=== PATIENT | female | born 1960 | race Caucasian/White ===

== ENCOUNTER 2022-10-05 08:46 | Emergency (ER) | payer OTHER, SELFPAY ==
[2022-10-05 09:26] VITALS: BP 124/58; PULSE 75; RESP 16; TEMP 37; O2SAT 100
--- NOTE | 2022-10-05 10:07 | ED.URI ---
HPI - URI/Sore Throat General Chief Complaint: Upper Respiratory Infection Stated Complaint: cough, sore throat, congestion, chills Time Seen by Provider: 10/05/22 10:08 Source: patient and RN notes reviewed Mode of arrival: ambulatory Limitations: no limitations History of Present Illness HPI Narrative: 62-year-old female presents concern for cough, sore throat, nasal congestion, hoarse voice, chills. Reports symptoms started on Saturday. She reports she is up all night coughing. She reports her grandkids had similar illness last week MD elicited complaint: cough and other (Hoarse voice) Related Data Home Medications Medication Instructions Recorded Confirmed levothyroxine 88 mcg tablet 88 mcg PO DAILY 10/05/22 10/05/22 losartan 25 mg tablet 25 mg PO DAILY 10/05/22 10/05/22 medroxyprogesterone 2.5 mg tablet 2.5 mg PO DAILY 10/05/22 10/05/22 Allergies Allergy/AdvReac Type Severity Reaction Status Date / Time Penicillins Allergy Unknown Verified 10/05/22 09:29 Review of Systems Review of Systems: CONSTITUTIONAL: Denies malaise, sweats, or fever. Reports chills EYES: Denies visual changes, redness, or discharge. ENT: Reports rhinorrhea, congestion, and sore throat. Denies sinus pain, otalgia CARDIOVASCULAR: Denies chest pain, palpitations, or edema. RESPIRATORY: Reports cough, hoarse voice. Denies dyspnea. GASTROINTESTINAL: Denies abdominal pain, nausea, vomiting, diarrhea SKIN: Denies rash or itching. MUSCULOSKELETAL: Denies myalgia. NEUROLOGIC: Denies headache. All systems reviewed & are unremarkable except as noted in HPI and below PMFSH Comments At time of signature, agree with nursing past medical, surgical, social and family history. There is no relevant family history pertinent to the presenting complaint Exam Narrative: GENERAL: Well-appearing, well-nourished, and in no acute distress. HEAD: Normocephalic EYES: PERRLA, conjunctivae clear ENT: Nares clear, turbinates edematous and erythematous, clear discharge. Mucous membranes moist. TM pearly falcon with dull light reflex bilaterally; no tragal tenderness. Oropharynx not erythematous without lesions. Tonsils not enlarged and without exudate, no drooling, no trismus, uvula midline. Hoarse voice NECK: Supple. No lymphadenopathy CHEST: Clear to auscultation, breath sounds equal. No wheezing, rhonchi, rales, or stridor. No respiratory distress, speaks in full sentences. HEART: Regular rate and rhythm. No murmur heard. SKIN: Warm, dry, no rash. NEURO: Alert and oriented x3. PSYCH: Normal mood and affect Course Course Emergency Course: Patient is aware of diagnosis, understands and agrees to treatment plan. Anticipatory guidance given. Patient agrees to follow-up as directed and is aware of reasons to seek care at the emergency department. Portions of this record may have been created with voice recognition software Level of Care: Express Care Visit Vital Signs Vital signs: Vital Signs Temperature 98.6 F 10/05/22 09:26 Pulse Rate 75 10/05/22 09:26 Respiratory Rate 16 10/05/22 09:26 Blood Pressure 124/58 L 10/05/22 09:26 Pulse Oximetry 100 10/05/22 09:26 Temperature 98.6 F 10/05/22 09:26 Pulse Rate 75 10/05/22 09:26 Respiratory Rate 16 10/05/22 09:26 Blood Pressure 124/58 L 10/05/22 09:26 Pulse Oximetry 100 10/05/22 09:26 Reviewed. MDM - URI/Sore Throat MDM Narrative Medical decision making narrative: Differential diagnosis considered: Littlejohn virus, strep pharyngitis, allergic rhinitis, upper respiratory tract infection, sinusitis, rhinosinusitis, nasopharyngitis. viral pharyngitis, otitis media, otitis externa, pneumonia, bronchitis, viral cough syndrome, viral syndrome, and influenza. Exam findings show no acute concerns or changes; patient is non-toxic appearing and is in no distress. Patient is appropriate for outpatient treatment and follow-up. Lab Data Attestation: I reviewed the patient's lab results. C
== END 2022-10-05 10:25 | disposition home or self-care (01) ==
PROVIDERS: Emergency Provider Nurse Practitioner
DX: J06.9 Acute upper respiratory infection, unspecified (principal); R05.9 Cough, unspecified
CPT/HCPCS: 99213; G0463

== ENCOUNTER 2024-10-17 08:04 | Emergency (ER) | payer OTHER, SELFPAY ==
--- NOTE | 2024-10-17 08:08 | ED.URI ---
HPI - URI/Sore Throat General Chief Complaint: Upper Respiratory Infection Stated Complaint: Cough/Congestion Time Seen by Provider: 10/17/24 08:09 Source: patient Mode of arrival: ambulatory Limitations: no limitations History of Present Illness HPI Narrative: Aleshia is a 64-year-old female patient presenting to the clinic today with complaints of cough and congestion x3 days. She reports that she has had direct exposure to her grandson who has walking pneumonia. Denies any fever or body aches at this time. Reports she does have some green nasal drainage in is coughing up some green phlegm. Denies any chest pain but does have some shortness of breath while coughing. No history of asthma or COPD. Patient is a nonsmoker. MD elicited complaint: cough and nasal congestion Related Data Home Medications Medication Instructions Recorded Confirmed levothyroxine 88 mcg tablet 88 mcg PO DAILY 10/05/22 10/17/24 losartan 25 mg tablet 25 mg PO DAILY 10/05/22 10/17/24 medroxyprogesterone 2.5 mg tablet 2.5 mg PO DAILY 10/05/22 10/17/24 estradiol 2 mg tablet 2 mg PO DAILY 10/17/24 10/17/24 Allergies Allergy/AdvReac Type Severity Reaction Status Date / Time Penicillins AdvReac Mild Hives Verified 10/17/24 08:07 Sulfa (Sulfonamide AdvReac Mild Hives Verified 10/17/24 08:19 Antibiotics) Review of Systems Review of Systems: Pertinent positives per HPI. Patient denies any fever, chills, rash, headache, visual changes, dizziness, shortness of breath, chest pain, palpitations, nausea, vomiting, diarrhea, constipation, abdominal pain, or any urinary issues. PMFSH Comments At the time of my signature, I reviewed and agree with the nursing past medical, surgical, social, and family history. There is no relevant family history pertinent to the patient complaint. Exam Narrative: General: Well-developed, well nourished, in no apparent distress Head: Normocephalic, atraumatic Eyes: Pupils equally round and reactive to light bilaterally, EOM intact, sclera and conjunctive clear, no discharge, lids normal Ears: TMs intact and clear, ear canals clear, no drainage, grossly hearing normal. Nose: Nares patent, clear nasal discharge, no inflammation, no sinus tenderness. Mouth: Oral pharynx without lesions or masses, good dentition, MMM. Postnasal drip Neck: Supple, trachea midline, no enlargement of anterior or posterior cervical nodes, no thyroid masses or goiter palpable. Cardio: Regular rate and rhythm, s1 and s2 normal, no murmur appreciated. Resp: Slightly diminished in the bases otherwise clear, no rhonchi, rales, wheezing or rubs Course Course Emergency Course: Portions of this record may have been created with voice recognition software. Level of Care: Express Care Visit Vital Signs Vital signs: Vital Signs Temperature 36.4 C 10/17/24 08:14 Pulse Rate 70 10/17/24 08:14 Respiratory Rate 16 10/17/24 08:14 Blood Pressure 146/74 H 10/17/24 08:14 Pulse Oximetry 100 10/17/24 08:14 Temperature 36.4 C 10/17/24 08:14 Pulse Rate 70 10/17/24 08:14 Respiratory Rate 16 10/17/24 08:14 Blood Pressure 146/74 H 10/17/24 08:14 Pulse Oximetry 100 10/17/24 08:14 Vital signs reviewed MDM - URI/Sore Throat MDM Narrative Medical decision making narrative: At the time of visit patient is resting comfortably on the exam table. Patient appears to be nontoxic. Plan: Offer to do a chest x-ray and patient she declined at this time. Will cover patient for a walking pneumonia as she has had direct exposure to her grandson. Will place the patient on azithromycin and give her Tessalon Perles at take at nighttime and encouraged her to use Mucinex during the day. Supportive measures were discussed with the patient and they voiced understanding discharge instructions and agrees to treatment plan. Return precautions reviewed Differential Diagnosis Differential diagnosis: Likely upper respiratory infection, otitis media, sinusitis, viral infection, bronchitis, influenza, pharyngitis and other Discharge Plan Discharge Clinical Impression: Exposure to pneumonia Upper respiratory infection Qualifiers: URI type: unspecified URI Qualified Code(s): J06.9 - Acute upper respiratory infection, unspecified Patient Disposition: Home, Self-Care Condition: Stable Instructions: Antibiotic Form, Cold Symptoms (ED) Additional Instructions: You declined chest x-ray in the clinic today. Take prescription medications only as prescribed-azithromycin and Tessalon Perles During the daytime you may take Mucinex to help liquify secretions intake Tessalon Perles at nighttime to help you sleep. Increase fluids and stay well hydrated Tylenol/motrin for pain/fever Flonase and OTC antihistamines as directed Vicks vapor rub to open sinuses Sinus rinses for congestion Cepacol spray, cough drops, throat lozenges, warm tea with honey/lemon, gargle salt water to soothe throat BRAT diet for diarrhea Clear liquids x 24 hours then advance as tolerated for nausea/vomiting Go to the ED if you develop a worsening in your condition- high fever not controlled by Tylenol or Motrin, dehydration, weakness, lethargy, shortness of breath, or chest pain. Follow up with your PCP in 3-5 days if symptoms persist. Prescriptions: New azithromycin 250 mg tablet See Rx Instructions .ROUTE .COMPLEX Qty: 6 0RF Rx Instructions: For 250 mg dose pack: take 500 mg today (day 1), then 250 mg for 4 days (days 2-5) benzonatate 200 mg capsule 200 mg PO TID 7 Days Qty: 21 0RF No Action medroxyprogesterone 2.5 mg tablet 2.5 mg PO DAILY levothyroxine 88 mcg tablet 88 mcg PO DAILY losartan 25 mg tablet 25 mg PO DAILY estradiol 2 mg tablet 2 mg PO DAILY Follow-up/Referrals: PHYSICIAN,CONCRETE [employer]ING MACHINE OPERATOR [Primary Care Provider] - Time of Disposition: 08:24 Quality NIHSS Nursing Documentation ED NIHSS nursing documentation: reviewed/agree
[2024-10-17 08:14] VITALS: BP 146/74; PULSE 70; RESP 16; TEMP 36.4; O2SAT 100
== END 2024-10-17 08:26 | disposition home or self-care (01) ==
PROVIDERS: Emergency Provider Nurse Practitioner Family
DX: J06.9 Acute upper respiratory infection, unspecified (principal); Z20.89 Contact with and (suspected) exposure to other communicable diseases; I10 Essential (primary) hypertension; M19.90 Unspecified osteoarthritis, unspecified site; E03.9 Hypothyroidism, unspecified; Z86.16 Personal history of COVID-19
CPT/HCPCS: 99213; G0463

== ENCOUNTER 2025-07-05 15:42 | Emergency (ER) | payer MEDICARE, SELFPAY ==
[2025-07-05 15:53] VITALS: BP 166/68; PULSE 70; RESP 18; TEMP 36.3; O2SAT 99
--- NOTE | 2025-07-05 16:17 | ED.EAR ---
HPI - Ear Problem General Chief complaint: Ear Stated complaint: RT Ear Clogged Time Seen by Provider: 07/05/25 15:56 Source: patient and RN notes reviewed Mode of arrival: ambulatory Limitations: no limitations History of Present Illness HPI Narrative: Patient presents today with right ear clogging x2 days. Denies pain or drainage. She does have history of cerumen impaction. She has been trying Debrox at home without improvement. Related Data Home Medications ?Medication ?Instructions ?Recorded ?Confirmed ?Last Taken ?Type levothyroxine 88 mcg tablet 88 mcg PO DAILY 10/05/22 07/05/25 Unknown History losartan 25 mg tablet 25 mg PO DAILY 10/05/22 07/05/25 Unknown History medroxyprogesterone 2.5 mg tablet 2.5 mg PO DAILY 10/05/22 07/05/25 Unknown History estradiol 2 mg tablet 2 mg PO DAILY 10/17/24 07/05/25 Unknown History Allergies Allergy/AdvReac Type Severity Reaction Status Date / Time Penicillins AdvReac Mild Hives Verified 07/05/25 15:44 Sulfa (Sulfonamide AdvReac Mild Hives Verified 07/05/25 15:44 Antibiotics) PMFSH Comments At time of signature, I have reviewed and agree with nursing past medical, surgical, social and family history unless otherwise noted. Please see nursing chart for further information. There is no relevant family history pertinent to the presenting complaint Exam Narrative: GENERAL: Well-appearing, well-nourished, and in no acute distress. HEAD: Normocephalic, atraumatic. EYES: EOMI. No redness or drainage. Conjunctivae normal. ENT: Mucous membranes pink and moist. Left TM normal with moderate amount of wax in the canal. Right TM occluded with cerumen impaction. See procedure note NECK: Normal AROM. CHEST: No respiratory distress. EXTREMITIES: Normal range of motion. No edema. SKIN: Warm, dry, no rash. Capillary refill normal. Normal skin turgor. NEURO: No focal deficits. Alert and oriented x3. Gait steady. PSYCH: Normal affect. No signs of depression or anxiety. Course Course Level of Care: Express Care Visit Vital Signs Vital signs: Vital Signs Temperature 97.3 F L 07/05/25 15:53 Pulse Rate 70 07/05/25 15:53 Respiratory Rate 07/05/25 15:53 Blood Pressure 166/68 H 07/05/25 15:53 Pulse Oximetry 99 07/05/25 15:53 Oxygen Delivery Room Air 07/05/25 15:53 Temperature 97.3 F L 07/05/25 15:53 Pulse Rate 70 07/05/25 15:53 Respiratory Rate 18 07/05/25 15:53 Blood Pressure 166/68 H 07/05/25 15:53 Pulse Oximetry 99 07/05/25 15:53 Oxygen Delivery Room Air 07/05/25 15:53 Review Procedures Ear Wax Removal Both Ears: Ear Wax Removal Date: 07/05/25 Ear Wax Removal Time: 16:17 Cerumenolytic Used: other (water and small amount of peroxide) Results: Re-examined: cerumen removed completely TM Examination: TM(s) intact, normal appearance Ear Canal Exam: atraumatic Patient Tolerated Procedure: well Complications: no problems Technique: ear canal irrigated (Alligator forceps also used to remove wax adhered to ear canals.) and ear canal curetted Medical Decision Making MDM Narrative Medical decision making narrative: 65-year-old female patient presents today with clogging to the right ear x2 days without pain or drainage. History of cerumen impaction. She has been using Debrox without improvement. Exam shows moderate amount of cerumen in the left ear within normal TM. Right ear exam shows cerumen impaction. Irrigation and manual removal of cerumen from both ears completed. Right TM normal underarm the cerumen. Both ear canals normal. Vital signs stable. Anticipatory guidance given. Differential Diagnosis Differential Diagnosis: Otitis media, otitis externa, ruptured TM, serous otitis, cerumen impaction Vital Signs Vital Signs: Vital Signs Temperature 97.3 F L 07/05/25 15:53 Pulse Rate 70 07/05/25 15:53 Respiratory Rate 18 07/05/25 15:53 Blood Pressure 166/68 H 07/05/25 15:53 Pulse Oximetry 99 07/05/25 15:53 Oxygen Delivery Room Air 07/05/25 15:53 Temperature 97.3 F L 07/05/25 15:53 Pulse Rate 70 07/05/25 15:53 Respiratory Rate 18 07/05/25 15:53 Blood Pressure 166/68 H 07/05/25 15:53 Pulse Oximetry 99 07/05/25 15:53 Oxygen Delivery Room Air 07/05/25 15:53 Critical Care Time Critical Care Time Critical Care Time: No Discharge Plan Discharge Clinical Impression: Bilateral impacted cerumen Patient Disposition: Home Condition: Stable Additional Instructions: Ear wax was removed from both ears. Follow-up with your PCP with any additional concerns. Your blood pressure was elevated above 120/80 today at Urgent Care. This puts you above the threshold for follow up. Please schedule a followup visit with your personal physician as soon as possible, for further evaluation and treatment. Even blood pressure exceeding 120/80 may indicate pre-hypertension. Patient Language: Turkmen Prescriptions: No Action medroxyprogesterone 2.5 mg tablet 2.5 mg PO DAILY levothyroxine 88 mcg tablet 88 mcg PO DAILY losartan 25 mg tablet 25 mg PO DAILY estradiol 2 mg tablet 2 mg PO DAILY Follow-up/Referrals: Carl,Amanda Jensen APRN [Primary Care Provider] - Time of Disposition: 16:18
== END 2025-07-05 16:21 | disposition home or self-care (01) ==
PROVIDERS: Emergency Provider Nurse Practitioner; PCP Nurse Practitioner
DX: H61.23 Impacted cerumen, bilateral (principal); I10 Essential (primary) hypertension; K21.9 Gastro-esophageal reflux disease without esophagitis; M19.90 Unspecified osteoarthritis, unspecified site; E03.9 Hypothyroidism, unspecified; Z86.16 Personal history of COVID-19
CPT/HCPCS: 69210; 99212; A9270; G0463

== ENCOUNTER 2025-07-14 09:00 | Emergency (ER) | payer MEDICARE, SELFPAY ==
--- OUTSIDE RECORDS SUMMARY | 2025-03-10 11:48 | XMS_ITS | Continuity of Care Document ---
Author Organization [employer] Address [address] [place] [id number] Phone Care Team Providers Care Vb Net Developer Name Role Phone Unavailable Unavailable Unavailable Unavailable Unavailable Unavailable Unavailable Unavailable Unavailable Unavailable Unavailable Unavailable Unavailable Unavailable Unavailable Unavailable Unavailable Unavailable Unavailable Unavailable Unavailable Unavailable Unavailable Unavailable Unavailable Unavailable Unavailable Unavailable Unavailable Unavailable Unavailable Unavailable Unavailable Unavailable Unavailable Unavailable Unavailable Unavailable Unavailable Unavailable Problems Hypothyroidism Onset:18-Sep-2016 Comments:Note: Unchanged Essential hypertension Onset:18-Sep-2016 Comments:Note: Unchanged Primary insomnia Onset:18-Sep-2016 Comments:Note: Unchanged Hypoglycemia Status:Resolvedas [id number] Comments:Note: Resolved Allergies and Adverse Reactions Product containing sulfonami de (product)(Allergy) Onset: 15-Sep-2016 Reaction:Eruption,Urticaria Product containing penicilli n and antibiotic (product)(Allergy) Onset: 15-Sep-2016 Reaction:Eruption,Urticaria Penicillin(Allergy) Reaction:Other reaction Sulfa(Allergy) Reaction:Itching/rash Medications tiZANidine 2 MG Oral Tablet; One (1) pill po up to two times a day Quantity:30 Refills:0 One (1) pill po up to two times a day David Garcia DO Start:10-Mar-2025 losartan potassium 25 MG Ora l Tablet;TAKE 1 TABLET BY MOUTH EVERY DAY Quantity:90 Refills:3 TAKE 1 TABLET BY MOUTH EVERY DAY Bridget Juan Natasha Start:76-Bzq-2009Ccc: levothyroxine sodium 0.088 M G Oral Tablet;TAKE 1 TABLET BY MOUTH EVERY DAY IN THE MORNING ON AN EMPTY STOMACH Quantity:90 Refills:3 TAKE 1 TABLET BY MOUTH EVERY DAY IN THE MORNING ON AN EMPTY STOMACH Bridget Juan Natasha Start:6-Jhr-4769Vbk:20-Dec-19 26 levothyroxine sodium 0.088 M G Oral Tablet;TAKE 1 TABLET BY MOUTH EVERY DAY IN THE MORNING ON AN EMPTY STOMACH Quantity:90 Refills:3 TAKE 1 TABLET BY MOUTH EVERY DAY IN THE MORNING ON AN EMPTY STOMACH Bridget Kaur Start:86-Yiy-2816Pog: 025 Status:Aborted losartan potassium 25 MG Ora l Tablet;TAKE 1 TABLET BY MOUTH EVERY DAY Quantity:90 Refills:1 TAKE 1 TABLET BY MOUTH EVERY DAY Bridget Kaur Start:24-Ptc-2456Omt: 5 Status:Aborted ondansetron 4 MG Oral Tablet;Ondansetron HCl 4 MG Oral Tablet QTY: 0 tablet Days: 0 Refills: 0 Written: 09/23/24 Patient Instructions: Quantity:0 Refills:0 Bridget Kaur Start:23-Sep-2024 Comments:Ondansetron HCl 4 MG Oral Tablet QTY: 0 tablet Days: 0 Refills: 0 Written: 09/23/24 Patient Instructions: levothyroxine sodium 0.088 M G Oral Tablet;TAKE 1 TABLET BY MOUTH EVERY DAY IN THE MORNING ON AN EMPTY STOMACH Quantity:90 Refills:1 TAKE 1 TABLET BY MOUTH EVERY DAY IN THE MORNING ON AN EMPTY STOMACH Bridget Kaur Start:62-Suq-4643Pvv: 4 Status:Complete losartan potassium 25 MG Ora l Tablet;TAKE 1 TABLET BY MOUTH EVERY DAY Quantity:90 Refills:1 TAKE 1 TABLET BY MOUTH EVERY DAY Bridget Kaur Start:10-Njd-7711Ask: 4 Status:Complete predniSONE 20 MG Oral Tablet ;Take 2 tabs by mouth day one, then 1 tab by mouth each day until finished Quantity:6 Refills:0 Take 2 tabs by mouth day one, then 1 tab by mouth each day until finished Bridget Kaur Start:37-Vjy-8092Ewi: 024 Status:Aborted ondansetron 4 MG Oral Tablet ;One (1) pill po up to three times a day as needed for severe nausea Quantity:18 Refills:0 One (1) pill po up to three times a day as needed for severe nausea Bridget Kaur Start:51-Nxn-6853Jlf:23-Sep-2024 Status:Aborted losartan potassium 25 MG Ora l Tablet;TAKE 1 TABLET BY MOUTH EVERY DAY Quantity:90 Refills:1 TAKE 1 TABLET BY MOUTH EVERY DAY Jeny Meza Start:0-Myg-0762Miv:2 26-Jun-2024 Status:Complete levothyroxine sodium 0.088 M G Oral Tablet;TAKE 1 TABLET BY MOUTH EVERY DAY IN THE MORNING ON AN EMPTY STOMACH Quantity:90 Refills:1 TAKE 1 TABLET BY MOUTH EVERY DAY IN THE MORNING ON AN EMPTY STOMACH Jeny Meza Start:4-Rxm-7241Key: Status:Complete levothyroxine sodium 0.088 M G Oral Tablet;TAKE 1 TABLET BY MOUTH EVERY DAY IN THE MORNING ON AN EMPTY STOMACH Quantity:90 Refills:1 TAKE 1 TABLET BY MOUTH EVERY DAY IN THE MORNING ON AN EMPTY STOMACH Marilu Harmon Start:12-Rco-2734Iyh: Status:Aborted losartan potassium 25 MG Ora l Tablet;TAKE ONE TABLET BY MOUTH ONE TIME DAILY Quantity:90 Refills:1 TAKE ONE TABLET BY MOUTH ONE TIME DAILY Marilu Harmon Start:85-Yds-3199Uze: Status:Complete losartan potassium 25 MG Ora l Tablet;TAKE ONE TABLET BY MOUTH ONE TIME DAILY Quantity:90 Refills:1 TAKE ONE TABLET BY MOUTH ONE TIME DAILY Spencer Pedro Start:6-Vcr-7967Cll: Status:Complete levothyroxine sodium 0.088 M G Oral Tablet;TAKE 1 TABLET BY MOUTH EVERY DAY IN THE MORNING ON AN EMPTY STOMACH Quantity:90 Refills:1 TAKE 1 TABLET BY MOUTH EVERY DAY IN THE MORNING ON AN EMPTY STOMACH Bridgeterica Kaur Start:5-Wpr-9402Bes: Status:Complete levothyroxine sodium 0.088 M G Oral Tablet;TAKE 1 TABLET BY MOUTH EVERY DAY IN THE MORNING ON AN EMPTY STOMACH Quantity:90 Refills:1 TAKE 1 TABLET BY MOUTH EVERY DAY IN THE MORNING ON AN EMPTY STOMACH Bridgeterica Kaur Start:5-Mwd-8394Tlr:20-Nov-19 Status:Complete losartan potassium 25 MG Ora l Tablet;TAKE ONE TABLET BY MOUTH ONE TIME DAILY Quantity:90 Refills:3 TAKE ONE TABLET BY MOUTH ONE TIME DAILY Spencer Pedro Start:9-Wbc-8275Swg:22-Jan-20 Status:Complete losartan potassium 25 MG Ora l Tablet;TAKE ONE TABLET BY MOUTH ONE TIME DAILY Quantity:90 Refills:3 TAKE ONE TABLET BY MOUTH ONE TIME DAILY Bridget Kaur Start:19-Adp-2718Ejj: Status:Complete levothyroxine sodium 0.088 M G Oral Tablet;TAKE 1 TABLET BY MOUTH EVERY DAY IN THE MORNING ON AN EMPTY STOMACH Quantity:90 Refills:1 TAKE 1 TABLET BY MOUTH EVERY DAY IN THE MORNING ON AN EMPTY STOMACH Amanda Foster Start:50-Mou-3847Upi: Status:Aborted ondansetron 4 MG Disintegrat ing Oral Tablet;One (1) pill po up to four times a day if needed for severe nausea Quantity:20 Refills:2 One (1) pill po up to four times a day if needed for severe nausea Marilu Harmon Start:83-Szt-9382Fno: 3 Status:Aborted losartan potassium 25 MG Ora l Tablet;TAKE ONE TABLET BY MOUTH ONE TIME DAILY Quantity:90 Refills:3 TAKE ONE TABLET BY MOUTH ONE TIME DAILY Bridget Kaur Start:20-Zbc-0326Boa: Status:Aborted levothyroxine sodium 0.088 M G Oral Tablet;TAKE ONE TABLET BY MOUTH ONE TIME DAILY IN THE MORNING ONE HOUR PRIOR TO BREAKFAST ON AN EMPTY STOMACH Quantity:90 Refills:3 TAKE ONE TABLET BY MOUTH ONE TIME DAILY IN THE MORNING ONE HOUR PRIOR TO BREAKFAST ON AN EMPTY STOMACH Bridget Kaur Start:2-Zvv-6393Ayp: Status:Aborted potassium bicarbonate 99 MG Oral Capsule;1 Daily Quantity:0 Refills:0 Marilu Harmon Start:88-Qes-6469Vpn: 3 Status:Aborted Comments:Potassium Bicarbonate 99 MG Oral Capsule QTY: 0 capsule Days: 0 Refills: 0 Written: 11/29/20 Patient Instructions: losartan potassium 25 MG Ora l Tablet;TAKE ONE TABLET BY MOUTH ONE TIME DAILY Quantity:90 Refills:0 TAKE ONE TABLET BY MOUTH ONE TIME DAILY Yuly Adair Start:9-Ntj-8680Uej: Status:Aborted levothyroxine sodium 0.088 M G Oral Tablet;TAKE ONE TABLET BY MOUTH ONE TIME DAILY IN THE MORNING ONE HOUR PRIOR TO BREAKFAST ON AN EMPTY STOMACH Quantity:90 Refills:0 TAKE ONE TABLET BY MOUTH ONE TIME DAILY IN THE MORNING ONE HOUR PRIOR TO BREAKFAST ON AN EMPTY STOMACH Yuly Adair Start:97-Jer-2931Ncg: Status:Aborted levothyroxine sodium 0.088 M G Oral Tablet;TAKE ONE TABLET BY MOUTH ONE TIME DAILY IN THE MORNING ONE HOUR PRIOR TO BREAKFAST ON AN EMPTY STOMACH Quantity:90 Refills:0 TAKE ONE TABLET BY MOUTH ONE TIME DAILY IN THE MORNING ONE HOUR PRIOR TO BREAKFAST ON AN EMPTY STOMACH Yuly Adair Start:19-Tte-3001Npl: Status:Complete losartan potassium 25 MG Ora l Tablet;TAKE ONE TABLET BY MOUTH ONE TIME DAILY Quantity:90 Refills:1 TAKE ONE TABLET BY MOUTH ONE TIME DAILY Yuly Adair Start:7-Cca-5238Msb:19-Oct-20 Status:Aborted cyclobenzaprine hydrochlorid e 10 MG Oral Tablet;Take one every bedtime Quantity:15 Refills:0 Take one every bedtime Yuly Adair Start:9-Nsf-4471Btn: Status:Aborted losartan;As needed (PRN): NoDispense as written: No Quantity:0 Refills:0 Marisa Nixon Start:26-Sep-2019 medroxyPROGESTERone acetate 2.5 MG Oral Tablet;1 tab(s) orally once a day Quantity:0 Refills:0 Marisa Nixon Start:26-Sep-2019 losartan potassium 25 MG Ora l Tablet;1 tab(s) orally once a day Quantity:0 Refills:0 Marisa Nixon Start:26-Sep-2019 high blood pressure pill;As needed (PRN): NoDispense as written: No Quantity:0 Refills:0 Day Singh Start:04-Jan-2017 Synthroid;orally Quantity:0 Refills:0 Day Singh Start:04-Jan-2017 estradiol;orally Quantity:0 Refills:0 Day Singh Start:04-Jan-2017 estradiol 1 MG Oral Tablet;1 Daily Quantity:0 Refills:0 David Garcia DO Start:15-Sep-2016 Comments:Estradiol 1 MG Oral Tablet QTY: 0 tablet Days: 0 Refills: 0 Written: 09/15/16 Patient Instructions: medroxyPROGESTERone acetate 2.5 MG Oral Tablet;1 Daily Quantity:0 Refills:0 David Garcia DO Start:15-Sep-2016 Comments:medroxyPROGESTERone Acetate 2.5 MG Oral Tablet QTY: 0 tablet Days: 0 Refills: 0 Written: 09/15/16 Patient Instructions: calcium acetate 600 MG Oral Tablet;1 Daily Quantity:0 Refills:0 David Garcia DO Start:15-Sep-2016 Comments:Calcium 600 MG Oral Tablet QTY: 0 tablet Days: 0 Refills: 0 Written: 09/15/16 Patient Instructions: Procedures Immunization administration (includes percutaneous, intradermal, subcutaneous, or intramuscular injections); 1 vaccine (single or combination vaccine/toxoid) Date:27-Aug-2023 Status:Completed Influenza virus vaccine, shanna drivalent (ccIIV4), derived from cell cultures, subunit, preservative and antibiotic free, 0.5 mL dosage, for intramuscular use Date:27-Aug-2023 Status:Completed Mammo Screen Bilateral/CADResult:Procedure: NMA - Mammo Screen Bilateral/CADReason: Z12.31 Encounter for screening mammogram for malignant neoplasm of breast Z12.3 Procedure Date: 11/04/2024 ACC#: [id number] Location: [facility] ER at [address], [place], [place] [phone] MAMMOGRAM WITH 3-D TomosynthesisCLINICAL INDICATION: Breast cancer screening.No symptoms or history of breast cancer.COMPARISON: Prior from 2021 and 2022TECHNIQUE: MLO and CC routine views of each breast were obtained in 2-D and 3-D tomosynthesis. CAD was used to assist with interpretation.BREAST DENSITY COMPOSITION: B-There are scattered areas of fibroglandular densityFINDINGS: There are no suspicious masses, suspicious microcalcifications or suspicious areas of architectural distortion. Stable glandular parenchymal pattern. Stable focal asymmetry in the right and left breast with no developing density. No adenopathy.IMPRESSION:No mammographic evidence of malignancy. If there is no change in the clinical breast exam, screening mammography in one year is recommended.Assessment: ACR Category: BI-RADS 2, Benign finding(s). Recommendation: Screening mammography.A. 4-8% of cancers are not identified by Mammography.B. A negative mammogram report should not delay biopsy if a dominant mass or clinically suspicious mass is present.C. Adenosis and dense breasts may obscure an underlying neoplasm.D. False positive reports average 6-10%.This office is an ACR accredited mammography facility.Electronically signed by: Teresita Roland MD 11/04/2024 04:44 PM EST RP Workstation: [id number] by: on Nov 04 2024 4:44PTranscribed by: on Nov 04 2024 4:44PReviewed by: Date:04-Nov-2024 Mammo Screen Bilateral/CADResult:Procedure: NMA - Mammo Screen Bilateral/CADReason: Z12.31 ENCOUNTER FOR SCREENING MAMMOGRAM FOR MALIGNANT NEOPLASM OF BREAST Z12.3 Procedure Date: 09/02/2023 ACC#: [id number] MAMMOGRAMCLINICAL INDICATION: Breast cancer screening.No symptoms or history of breast cancer. Patient declined 3-D imagingCOMPARISON: Priors available through 2018TECHNIQUE: MLO and CC routine views of each breast were obtained in 2-D . CAD was used to assist with interpretation.BREAST DENSITY COMPOSITION: B-There are scattered areas of fibroglandular densityFINDINGS: There are no suspicious masses, suspicious microcalcifications or suspicious areas of architectural distortion. Stable focal asymmetry of the right superior breast with no developing density.IMPRESSION:No mammographic evidence of malignancy. If there is no change in the clinical breast exam, screening mammography in one year is recommended.BI-RADS CODE: 2 - BENIGN FINDINGS.A. 4-8% of cancers are not identified by Mammography.B. A negative mammogram report should not delay biopsy if a dominant mass or clinically suspicious mass is present.C. Adenosis and dense breasts may obscure an underlying neoplasm.D. False positive reports average 6-10%.This office is an ACR accredited mammography facility.Electronically signed by: Teresita Roland MD 09/02/2023 04:15 PM EDT Workstation: [id number] by: on Sep 02 2023 4:15PTranscribed by: on Sep 02 2023 4:15PReviewed by: Date:02-Sep-2023 Immunizations Influenza 6 mos + Trivalent PF 0.5ml FLUZONE On:18-Aug-2024 Influenza Cell Based 6 month s+ Quad, IM 0.5 ml Lot #:[id number], Seqirus On:27-Aug-2023 Site:Structure of deltoid muscle Influenza (quad, PF Peds 6-3 5m) Lot #:[id number], [employer]Craft On:31-Aug-2022 Site:Structure of deltoid muscle Zoster/Shingles, Recombinant (Shingrix) Lot #:[id number], DigeratiithKline On:28-Feb-2022 Zoster/Shingles, Recombinant (Shingrix) On:16-Jan-2022 SARS-CoV-2 (COVID-19) (Moder na) age 18 and older [employer]. On:18-Dec-2021 Site:Entire left upper arm Zoster/Shingles, Recombinant (Shingrix) GlaxoSmithKline On:18-Dec-2021 Influenza, High Dose, IM, PF On:18-Aug-2021 Influenza (quad, PF Peds 6-3 5m) sanofi pasteur On:11-Aug-2021 Site:Entire left upper arm SARS-CoV-2 (COVID-19) (Moder na) age 18 and older [employer]. On:22-Feb-2021 Site:Structure of deltoid muscle Influenza Egg Based 6 months +, Quad, IM, PF 0.5ml Lot #:[id number], sanofi pasteur On:26-Sep-2020 Site:Entire left upper arm Influenza Egg Based 6 months +, Quad, IM, PF 0.5ml Lot #:[id number], sanofi pasteur On:05-Oct-2019 Site:Entire left upper arm Tdap (Adacel) Lot #:[id number], sanofi pasteur On:21-Aug-2018 Site:Entire left upper arm Influenza Egg Based 6 months +, Quad, IM, PF 0.5ml Lot #:[id number], sanofi pasteur On:21-Aug-2018 Site:Entire left upper arm Influenza Egg Based 6 months +, Quad, IM, PF 0.5ml Lot #:[id number], sanofi pasteur On:18-Sep-2017 Site:Entire left upper arm Pneumococcal (PPSV23) (Pneum ovax) Not Administered On:18-Sep-2016 Social History Smoking Status Ex-smoker Comments:Smoking status : Former smoker Results CBC With Differential/Platelet Ordered On: Comments:PATIENT WAS FASTING 15-Sep-2024 02:36 WBC Auto (Bld) [#/Vol]6.710*3/uL Range:3.410*3/uL-10.810*3/uL RBC Auto (Bld) [#/Vol]3.9010*6/uL Range:3.7710*6/uL-5.2810*6/u L Hemoglobin (Bld) [Mass/Vol]12.3g/dL Range:11.1g/dL-15.9g/dL Hematocrit Auto (Bld ) [Volume fraction]37.1% Range:34%-46.6% MCV Auto (RBC) [Enti tic vol]95fL Range:79fL-97fL MCH Auto (RBC) [Enti tic mass]31.5pg Range:26.6pg-33pg MCHC Auto (RBC) [Mass/Vol]33.2g/dL Range:31.5g/dL-35.7g/dL Erythrocyte distribu tion width Auto (RBC) [Ratio]12.5% Range:11.7%-15.4% Platelets Auto (Bld) [#/Vol]48161*3/uL Range:92471*3/uL-85502*3/uL Neutrophils/100 WBC Auto (Bld)54% Range:Not Estab. Lymphocytes/100 WBC Auto (Bld)37% Range:Not Estab. Monocytes/100 WBC Au to (Bld)8% Range:Not Estab. Eosinophils/100 WBC Auto (Bld)1% Range:Not Estab. Basophils/100 WBC Au to (Bld)0% Range:Not Estab. Immature Cells Neutrophils Auto (Bl d) [#/Vol]3.610*3/uL Range:1.410*3/uL-710*3/uL Lymphocytes Auto (Bl d) [#/Vol]2.510*3/uL Range:0.710*3/uL-3.110*3/uL Monocytes Auto (Bld) [#/Vol]0.510*3/uL Range:0.110*3/uL-0.910*3/uL Eosinophils Auto (Bl d) [#/Vol]0.110*3/uL Range:010*3/uL-0.410*3/uL Basophils Auto (Bld) [#/Vol]0.010*3/uL Range:010*3/uL-0.210*3/uL Immature granulocyte s/100 WBC Auto (Bld)0% Range:Not Estab. Immature granulocyte s Auto (Bld) [#/Vol]0.010*3/uL Range:010*3/uL-0.110*3/uL Nucleated RBC/100 WB C Auto (Bld) [Ratio] Morphology Edwin (Bld) [Interp] Comp. Metabolic Panel (14) Ordered On: Comments:PATIENT WAS FASTING 15-Sep-2024 04:20 Glucose [Mass/Vol]78mg/dL Rang e:70mg/dL-99mg/dL Urea nitrogen [Mass/Vol]19mg/dL Range:8mg/dL-27mg/dL CO2 [Moles/Vol]23mmol/L Range:20 mmol/L-29mmol/L Calcium [Mass/Vol]8.8mg/dL Range :8.7mg/dL-10.3mg/dL Bilirubin [Mass/Vol]0.4mg/dL Range:0mg/dL-1.2mg/dL 15-Sep-2024 04:24 Creatinine [Mass/Vol]1.06mg/dL(High) Range:0.57mg/dL-1mg/dL GFR/1.73 sq M.predic lilibeth Creatinine-based formula (CKD-EPI 2020) (S/P/Bld) [Vol rate/Area]59mL/min/{1.73_m 2}(Low) Range:59mL/min/{1.73_m2}-0 Urea nitrogen/Creati nine [Mass ratio]18 Range:12-28 Protein [Mass/Vol]6.8g/dL Range: 6g/dL-8.5g/dL Globulin Calc (S) [Mass/Vol]2.8g/dL Range:1.5g/dL-4.5g/dL 15-Sep-2024 04:42 Sodium [Moles/Vol]139mmol/L Range:134mmol/L-144mmol/L Chloride [Moles/Vol]105mmol/L Range:96mmol/L-106mmol/L 15-Sep-2024 04:48 Potassium [Moles/Vol]4.8mmol/L Range:3.5mmol/L-5.2mmol/L 15-Sep-2024 04:18 Albumin [Mass/Vol]4.0g/dL Rang e:3.9g/dL-4.9g/dL ALP [Catalytic activity/Vol]58[IU]/L Range:44[IU]/L-121[IU]/L AST [Catalytic activity/Vol]23[IU]/L Range:0[IU]/L-40[IU]/L ALT [Catalytic activity/Vol]11[IU]/L Range:0[IU]/L-32[IU]/L Lipid Panel Ordered On:14-Sep-2024 Comments: PATIENT WAS FASTING 15-Sep-2024 04:26 Cholesterol [Mass/Vol]184mg/dL Range:100mg/dL-199mg/dL Triglyceride [Mass/Vol]95mg/dL Range:0mg/dL-149mg/dL 15-Sep-2024 04:30 Cholesterol in HDL [Mass/Vol]69mg/dL Range:39mg/dL-0 Cholesterol in VLDL Calc [Mass/Vol]17mg/dL Range:5mg/dL-40mg/dL Cholesterol in LDL C alc [Mass/Vol]98mg/dL Range:0mg/dL-99mg/dL LDL Calc Comment: Thyroxine (T4) Free, Direct Ordered On:14-Sep-20 Comments:PATIENT WAS FASTING 15-Sep-2024 04:29 Free T4 [Mass/Vol]1.34ng/dL Range:0.82ng/dL-1.77ng/dL TSH Ordered On:14-Sep-2024 Comments: PATIENT WAS FASTING 15-Sep-2024 04:29 TSH DL <= 0.005 mIU/ L Qn2.940{uIU/mL} Range:0.45{uIU/mL}-4.5{uIU/m L} Triiodothyronine (T3), Free Ordered On:14-Sep-20 Comments:PATIENT WAS FASTING 15-Sep-2024 04:29 Free T3 [Mass/Vol]2.5pg/mL Ran ge:2pg/mL-4.4pg/mL Vital Signs 10-Mar-2025 16:06 BP Feilpjts494ko[Hg] BP Iassiymrm63ry[Hg] Pulse72/min Respiratory Rate18/min Fiunvhfphqr61z BMI24.5 BSA1.6 O2 SAT95% Aljymm50dv Quuzvy595xt 23-Sep-2024 08:51 BP Appwvcss450da[Hg] BP Pebuaqayz72sw[Hg] Pulse49/min Respiratory Rate16/min Wnxkuwgzzru73s BMI24 BSA1.6 O2 SAT98% Iovxmw86ok Hhfzmg619ew 16-Jul-2024 11:14 BP Cjaiaije040jk[Hg] BP Djpkulwjg34qj[Hg] Pulse73/min Heart rate rhythm1 Respiratory Rate18/min Yozfcoldkph65.7f BMI24.4 BSA1.6 O2 SAT99% Gxbhwu29wl Ecflac224.2lb 27-Aug-2023 10:26 BP Rkoxvfiy743xb[Hg] BP Nlvslwswj84ob[Hg] Pulse68/min Respiratory Rate16/min Nxgxhvmbijn57.6f BMI24.7 BSA1.6 O2 SAT99% Qotbyo34xo Jllimu125.8lb 18-Jul-2023 13:12 BMI24.7 BSA1.6 Nyzuaz78pp Thvfjv510th 31-Jul-2022 14:21 BP Oqyssevy35ck[Hg] BP Eebrqbfkk09ma[Hg] Pulse63/min Respiratory Rate16/min Idfsfuokdcu44n BMI24.8kg/m2 BSA1.6m2 O2 SAT97% Lbswfb33jh Fzozxr112.4lb 17-Apr-2022 09:23 BP Qoqprzgg829nt[Hg] BP Vmdiqyxsn03uq[Hg] Pulse72/min Gtgascjacgr21.4f WHQ82rl/m2 BSA1.6m2 O2 SAT99% Tepnbw62ss Pbrgpz257be 11-Jan-2022 11:33 BP Jsqmhdzz060fl[Hg] BP Wqfgwblsd80eg[Hg] Pulse64/min Respiratory Rate16/min Lskqymvdivd71m BMI23.6kg/m2 BSA1.6m2 O2 SAT97% Zqlxgk35ed Gepuof732xr 01-Dec-2021 15:13 BP Prliljjw738aw[Hg] BP Hikaadajg25fy[Hg] Pulse65/min Respiratory Rate16/min Gfusxzqcere40o BMI24.3kg/m2 BSA1.6m2 O2 SAT98% Griudg49kf Rvheas294pb 29-Nov-2020 10:51 BP Yangadfj866ki[Hg] BP Ecyhpvatp80wo[Hg] Pulse62/min Respiratory Rate16/min Ymacqbnsgmq20.7f BMI23.5kg/m2 BSA1.6m2 O2 SAT99% Ennxct05.5in Yarzkg241.8lb 20-Apr-2020 07:09 BP Wltkgjzc640it[Hg] BP Cygjykqfu15uh[Hg] Pulse66/min Respiratory Rate16/min Kpisqjanjsn12t BMI23.3kg/m2 BSA1.6m2 O2 SAT99% Oagdrm14.5in Zgijen919.2lb 27-Nov-2019 12:42 BP Oktzqyjl786hb[Hg] BP Ivucxlkwu83ht[Hg] Pulse78/min Respiratory Rate16/min Ocfbdnqksrh05.5f BMI23.4kg/m2 BSA1.6m2 O2 SAT98% Falrde69.5in Ndblxu850bb 26-Sep-2019 08:04 SaO2% Calculated fro m oxygen partial pressure (Bld) [Mass fraction]100%(Normal) Pbztabehxyw33.7f(Normal) Range:9 3.42891-167.34980 BP Lkovwdly127cx[Hg](Normal) Ran ge:25.61406-959.17907 BP Pyybpukpl31hp[Hg](Normal) Ran ge:25.34068-769.31911 Respiratory Rate16/min(Normal) Xjcpbl708kj(Normal) Oanfpy59km(Normal) 19-Nov-2018 15:42 BP Vizmhxsd418kf[Hg] BP Zehxyqlvr81vw[Hg] Pulse70/min Respiratory Rate17/min Hmydjhsbfet64.3f BMI26.3kg/m2 BSA1.7m2 O2 SAT98% Pskxvv37.5in Otxmum839pc 30-Jan-2018 15:27 BP Fwifqfhb621ve[Hg] BP Gnbsogmcx73fx[Hg] Pulse74/min Respiratory Rate17/min Xdnayoimded40.1f BMI24.8kg/m2 BSA1.6m2 O2 SAT98% Gydrgu51.5in Vvdrmb278br 15-Jul-2017 11:23 BP Xstvlsvf391yn[Hg] BP Hqevcoprd40fu[Hg] Pulse82/min Respiratory Rate17/min Xdkzxqplfqi81.3f BMI25.2kg/m2 BSA1.7m2 O2 SAT98% Vjslyu02.5in Twzxkc951wa 04-Jan-2017 16:17 BP Wngzifxe755ta[Hg](Normal) Ran ge:25.42892-630.04122 BP Jcwfjudjr31wc[Hg](Normal) Ran ge:25.49616-263.68529 04-Jan-2017 16:03 SaO2% Calculated fro m oxygen partial pressure (Bld) [Mass fraction]99%(Normal) Jllcmcupesh47g(Normal) Range:93. 91597-233.53377 Yndqeg729.5cm(Normal) Zikimi04.5kg(Low) Range:995.0000 0-996.02282 27-Sep-2016 08:47 BP Iwhsjyxy454ky[Hg] BP Neumovrmc09wr[Hg] Pulse74/min Respiratory Rate15/min Wkcoapldxlu56.4f BMI25.4kg/m2 BSA1.7m2 O2 SAT99% Feqxid92.5in Lnrsfi944cr 18-Sep-2016 10:21 BP Jvncgypj528af[Hg] BP Atbzlolmg99rg[Hg] Pulse68/min Respiratory Rate15/min Pwygtxcwqhi33.7f BMI25.7kg/m2 BSA1.7m2 O2 SAT99% Hvrhlk90.5in Enpxlz657eq Encounters Ambulatory Encounter Diagnosis:Neck pain,Muscle spasm of cervical muscle of neck,Degenerative cervical spinal stenosis,Episodic tension-type headache 10-Mar-2025 14:71At81-Vra-[id number] 16:48 [facility] tel: Comments:Cervicalgia,Muscle Spasm of Cervical Muscle of Neck,Spinal Stenosis Cervical Degenerative,Tension-type Headache Episodic Without Intractable Headache Ambulatory Encounter Reason:ENC SCR MAMMO MALIG NEOPLASM BREAST,ENC SCR MAMMO MALIG NEOPLASM BREAST,ENC SCR MAMMO MALIG NEOPLASM BREAST Encounter Diagnosis:Encounter for screening mammogram for malignant ne,Encounter for screening mammogram for malignant ne,Encounter for screening mammogram for malignant ne 04-Nov-2024 16:36Sk49-Owx-5686 23:59 [facility] Ambulatory 23-Sep-2024 08:42Jx0-Ono-0251 09:34 [facility] tel: Ambulatory 15-Jul-2017 [facility] tel: Ambulatory 27-Sep-2016 [facility] tel: Ambulatory 18-Sep-2016 [facility] tel:
--- NOTE | ~2025-07-14 | XR_ITS ---
EXAMINATION: XR chest 2V COMPARISON: No comparisons available. HISTORY: sob/weak COUGH VOMITTING H/A FINDINGS: The lungs are clear, no effusion. No pneumothorax. Heart is normal size. Mediastinal and hilar contours are within normal limits. Bony thorax no acute abnormality. Miscellaneous: None Impression: No acute cardiopulmonary abnormality. Reviewed, dictated and finalized at location A. Impression: No acute cardiopulmonary abnormality.
[2025-07-14 09:04] VITALS: BP 149/75; PULSE 70; RESP 18; TEMP 36.4; O2SAT 97
--- OUTSIDE RECORDS SUMMARY | 2025-07-14 09:09 | XMS_ITS | Clinical Summary ---
Author Organization [facility] Address [address] [place] [address] Care Team Providers Care Vascular Specialists Name Role Phone Amanda Henry April MANUAL QA TESTER-CATALYTIC CASE OPERATOR Primary Care Provid er Source Comments [facility],non-owned Affiliates and Associated Physician Practices is amultiple site organization consisting of ambulatory clinics and hospital sitesin [place], [place], [place] and [place]. This disclosure is being madepursuant to the Care Everywhere program and may not contain all information available regarding this patient. Last updated 18.[facility] Encounters Date Type Department Care Team Description 07/07/2025 Telephone [facility] - Rheumatology [address], [address] [place] [address] Francisco Maldonado DO Referral; Appointment 07/07/2025 Transcribe Orders [facility] - Rheumatology [address], [address] [place] [address] Group, [facility] Medical Positive YUDITH (antinuclear antibody) from Last 3 Months Social History Tobacco Use Types Packs/Day Years Used Date Smoking Tobacco: Never Assessed Comments Unknown Sex and Gender Information Value Date Recorded Sex Assigned at Not on file Legal Sex Female 9:07 AM CDT Gender Identity Not on file Sexual Orientation Not on file Plan of Treatment Upcoming Encounters Date Type Department Care Team (Late st Contact Info) Description 08/18/2025 1:20 PM CDT Office Visit [facility] - Rheumatology [address], [address] [place] [address] Francisco Maldonado DO [address] [place] [address] Health Maintenance Due Date Last Done Comments BONE DENSITY TESTING 1960 COLOGUARD (AGES 45-75) - COL ON CA SCREENING 1960 COLON MONITORING 1960 COLONOSCOPY - COLON CA SCREENING 1960 CT COLONOGRAPHY - COLON CA SCREENING 1960 Colorectal Cancer Screening 1960 FIT - COLON CA SCREENING 1960 FLEX SIG - COLON CA SCREENING 1960 LIPID TESTING 1960 MAMMOGRAM 1960 HIV SCREENING 1975 HEPATITIS C SCREENING 05/23/1978 DTAP/TDAP/TD VACCINES (1 - Tdap) 1979 PAP SMEAR 1981 PNEUMOCOCCAL VACCINE 50+ (1 of 1 - PCV) 2010 ZOSTER VACCINE (1 of 2) 2010 COVID-19 VACCINE (1 - 2023-2 5 season) 2024 DEPRESSION SCREENING 11/18/2024 INFLUENZA VACCINE (#1) 2025 Respiratory Syncytial Virus (RSV) Vaccine Pt: or over 60 yrs (1 - 1-dose 75+ series) 2035 HEPATITIS B VACCINE Aged Out No longe r eligible based on patient's age to complete this topic HIB VACCINE Aged Out No longer eligi ble based on patient's age to complete this topic HPV VACCINE Aged Out No longer eligi ble based on patient's age to complete this topic MENINGOCOCCAL (Group B) VACC INE SHARED DECISION-MAKING Aged Out No longer eligibl e based on patient's age to complete this topic MENINGOCOCCAL GROUPS A/C/Y/W VACCINE Aged Out No longer eligible b ased on patient's age to complete this topic Care Teams Vascular Specialists Relationship Specialty Start Date End Date Amanda Henry April, MANUAL QA TESTER-CATALYTIC CASE OPERATOR [address] [place] [id number] PCP - General Nurse Practitioner 07/07/25
[2025-07-14 09:30] LABS: Hematocrit 37.1 % (37.0-47.0); Hemoglobin 12.0 g/dL (12.0-15.0); Immature Granulocyte Percent A 0.3 % (0-0.5); Lymphocytes Absolute Auto 0.85 K/mm3 (0.9-3.2); Mean Corpuscular HGB Conc 32.3 g/dl (32-36); Mean Corpuscular Hemoglobin 31.1 pg (26-34); Mean Corpuscular Volume 96.1 fl (80-100); Nucleated Red Blood Cells Absolute Auto 0.000 K/mm3 (0.0-0.012); Nucleated Red Blood Cells Perc 0.0 % (0.0-0.2); Platelet Count Result 173 k/mm3 (150-375); Red Blood Count 3.86 M/mm3 (4.2-5.4); White Blood Count 8.6 K/mm3 (4.5-10.0)
--- OUTSIDE RECORDS SUMMARY | 2025-07-14 09:45 | XMS_ITS | Clinical Summary ---
Author Organization [facility] Address [address] [place] [address] Care Team Providers Care Marquetry Worker Name Role Phone Amanda Henry April OYSTER FLOATER-DAMAGE PREVENTION COORDINATOR Primary Care Provid er Source Comments [facility],non-owned Affiliates and Associated Physician Practices is amultiple site organization consisting of ambulatory clinics and hospital sitesin [place], [place], [place] and [place]. This disclosure is being madepursuant to the Care Everywhere program and may not contain all information available regarding this patient. Last updated 18.[facility] Encounters Date Type Department Care Team Description 07/07/2025 Telephone [facility] - Rheumatology [address], [address] [place] [address] Francisco Maldonado DO Referral; Appointment 07/07/2025 Transcribe Orders [facility] - Rheumatology [address], [address] [place] [address] Group, [facility] Medical Positive YUDITH (antinuclear antibody) from [...] Description 08/18/2025 1:20 PM CDT Office Visit [facility] - Rheumatology [address], [address] [place] [address] Francisco Maldonado DO [address] [place] [address] Health Maintenance Due Date Last [...] age to complete this topic Care Teams Marquetry Worker Relationship Specialty Start Date End Date Amanda Henry April, OYSTER FLOATER-DAMAGE PREVENTION COORDINATOR [address] [place] [phone] PCP - General Nurse Practitioner 07/07/25
[2025-07-14 09:47] LABS: Alanine Aminotransferase 20 U/L (6-35); Albumin Level 3.6 g/dL (3.5-5.1); Alkaline Phosphatase 75 U/L (38-126); Anion Gap 3 mmol/L (4-12); Aspartate Amino Transferase 35 U/L (14-36); Bilirubin,Total 0.4 mg/dL (0.2-1.3); Blood Urea Nitrogen 16 mg/dL (7-17); Calcium 8.1 mg/dL (8.4-10.2); Carbon Dioxide 25 mmol/L (22-30); Chloride 106 mmol/L (98-107); Estimated CRCL calculation 48 ml/min; Estimated Glomerular Filt Rate > 60; Glucose 112 mg/dL (65-110); Potassium 4.3 mmol/L (3.4-5.0); Sodium 134 mmol/L (137-145); Total Protein 6.7 g/dL (6.3-8.2)
[2025-07-14 09:51] VITALS: PULSE 71
--- NOTE | 2025-07-14 09:52 | ED.SOB ---
HPI - SOB/Dyspnea General Chief Complaint: Shortness of Breath/Dyspnea Stated Complaint: SOB, cold symptoms, N/V Time Seen by Provider: 07/14/25 09:11 History of Present Illness HPI Narrative: This is a 65-year-old female with history of hypertension, hypothyroidism who presents to the ED for cough, congestion states that for the past couple days, she has been nonproductive cough. She vomited multiple times this morning during her coughing fits. She states she has had multiple close contacts with her family members with similar symptoms. Denies fevers, chills, chest pain. She is a nonsmoker. Related Data Home Medications ?Medication ?Instructions ?Recorded ?Confirmed ?Last Taken ?Type levothyroxine 88 mcg tablet 88 mcg PO DAILY 10/05/22 07/05/25 Unknown History losartan 25 mg tablet 25 mg PO DAILY 10/05/22 07/05/25 Unknown History medroxyprogesterone 2.5 mg tablet 2.5 mg PO DAILY 10/05/22 07/05/25 Unknown History estradiol 2 mg tablet 2 mg PO DAILY 10/17/24 07/05/25 Unknown History Allergies Allergy/AdvReac Type Severity Reaction Status Date / Time Penicillins AdvReac Mild Hives Verified 07/14/25 09:08 Sulfa (Sulfonamide AdvReac Mild Hives Verified 07/14/25 09:08 Antibiotics) Review of Systems Review of Systems: Gen.: Denies fevers or chills Eyes: Denies eye pain or visual change ENT: As per HPI Respiratory: As per HPI CV: Denies chest pain or palpitations GI: Denies abdominal pain nausea, emesis or diarrhea denies burning, urgency, frequency or hematuria Musculoskeletal: Denies back pain or muscle pain Neuro: Denies numbness, tingling, weakness or focal weakness Skin: Denies rash Except as documented, all other systems reviewed and negative Exam Narrative: APPEARANCE: No acute distress, nontoxic, resting in bed EYES: EOMI HEENT: Normocephalic, atraumatic, OMM RESPIRATORY: No respiratory distress faint rhonchi to the middle lung hinojosa CARDIOVASCULAR: Regular rate and rhythm without murmurs rubs or gallops. ABDOMINAL: Soft, nontender, nondistended, no rebound or guarding MUSCULOSKELETAl: Moves all extremities. No clubbing, cyanosis or edema. NEURO: Awake and alert. Following commands, speech normal, no focal deficits SKIN:: Warm, dry. No rashes lesions or abrasions PSYCHIATRIC: Normal affect/mood, Course Vital Signs Vital signs: Vital Signs Temperature 97.5 F L 07/14/25 09:04 Pulse Rate 70 07/14/25 09:04 Respiratory Rate 18 07/14/25 09:04 Blood Pressure 149/75 H 07/14/25 09:04 Pulse Oximetry 97 07/14/25 09:04 Oxygen Delivery Room Air 07/14/25 09:04 Temperature 97.5 F L 07/14/25 09:04 Pulse Rate 69 07/14/25 11:50 Respiratory Rate 15 07/14/25 11:50 Blood Pressure 138/59 L 07/14/25 11:50 Pulse Oximetry 98 07/14/25 11:50 Oxygen Delivery Room Air 07/14/25 09:04 MDM - SOB/Dyspnea MDM Narrative Medical decision making narrative: 65-year-old female that presents to the ED for shortness of breath. On initial evaluation, patient was in no acute distress, afebrile, hemodynamically stable. She had some scattered occasional rhonchi but no wheezes. CBC and CMP were without significant abnormalities. COVID/flu/RSV negative. Chest x-ray showed no acute process. Suspect the patient does have an acute bronchitis. She will be given a short course of steroids. She was advised follow-up with her PCP in the next week for evaluation. Patient was agreeable to this plan. Given strict return precautions. Differential Diagnosis Differential diagnosis: Likely acute exacerbation of chronic obstructive airways disease, community acquired pneumonia and other (Viral syndrome, bronchitis) Medical Records Attestation: I reviewed the patient's medical records. Lab Data Attestation: I reviewed the patient's lab results. 07/14/25 09:22 07/14/25 09:22 Labs: Lab Results 07/14/25 Range/Units 09:22 WBC 8.6 (4.5-10.0) K/mm3 RBC 3.86 L (4.2-5.4) M/mm3 Hgb 12.0 (12.0-15.0) g/dL Hct 37.1 (37.0-47.0) % MCV 96.1 (80-100) fl MCH 31.1 (26-34) pg MCHC 32.3 (32-36) g/dl RDW 13.2 (11.5-14.5) % Plt Count 173 (150-375) k/mm3 MPV 11.0 H (7.4-10.4) fl Immature Gran % (Auto) 0.3 (0-0.5) % Neut % (Auto) 80.6 H (45.5-73.1) % Lymph % (Auto) 9.9 L (18.3-44.2) % [place] % (Auto) 7.2 (2.6-8.5) % Eos % (Auto) 1.9 (0-4.4) % Baso % (Auto) 0.1 L (0.2-1.2) % Lymph # (Auto) 0.85 L (0.9-3.2) K/mm3 [place] # (Auto) 0.6 (0.1-0.6) K/mm3 Eos # (Auto) 0.2 (0-0.3) K/mm3 Baso # (Auto) 0.0 (0.0-0.1) K/mm3 Abs Immat Gran (auto) 0.03 (0.00-0.031) K/mm3 Absolute Neuts (auto) 6.9 H (1.3-6.7) K/mm3 Absolute Nucleated RBC 0.000 (0.0-0.012) K/mm3 Nucleated RBC % 0.0 (0.0-0.2) % Sodium 134 L (137-145) mmol/L Potassium 4.3 (3.4-5.0) mmol/L Chloride 106 (98-107) mmol/L Carbon Dioxide 25 (22-30) mmol/L Anion Gap 3 L (4-12) mmol/L BUN 16 (7-17) mg/dL Creatinine 0.93 (0.7-1.0) mg/dL Estim Creat Clear Calc 48 ml/min Estimated GFR > 60 (59 - ) Glucose 112 H (65-110) mg/dL Calcium 8.1 L (8.4-10.2) mg/dL Total Bilirubin 0.4 (0.2-1.3) mg/dL AST 35 (14-36) U/L ALT 20 (6-35) U/L Alkaline Phosphatase 75 (38-126) U/L Total Protein 6.7 (6.3-8.2) g/dL Albumin 3.6 (3.5-5.1) g/dL Influenza A (RT-PCR) Negative (Negative) Influenza B (RT-PCR) Negative (Negative) RSV (RT-PCR) Negative (Negative) SARS-CoV-2 RNA (RT-PCR) Negative (Negative) Imaging Data Radiologist's impression: Impressions Chest X-Ray 07/14/25 10:09 Impression: No acute cardiopulmonary abnormality. Discharge Plan Discharge Clinical Impression: Acute bronchitis Patient Disposition: Home Condition: Stable Instructions: Antibiotic Form, Acute Bronchitis (ED) Additional Instructions: Chest x-ray and labs were reassuring. There is no COVID/flu/RSV. You likely have a bronchitis cusp and other riders. Your given a prescription for Medrol Morgan, Adele Ceballos, take this as prescribed. Follow up with the PCP in the next week for re-evaluation if needed. Return to the ED for any new or worsening symptoms. Patient Language: Indonesian Prescriptions: New methylprednisolone [Medrol (Pérez)] 4 mg tablets,dose pack See Rx Instructions .ROUTE .COMPLEX Qty: 21 0RF Rx Instructions: for 6 days ondansetron 4 mg tablet,disintegrating 4 mg PO Q8H PRN (Reason: nausea and vomiting) Qty: 14 0RF benzonatate 200 mg capsule 200 mg PO TID PRN (Reason: cough) Qty: 21 0RF No Action medroxyprogesterone 2.5 mg tablet 2.5 mg PO DAILY levothyroxine 88 mcg tablet 88 mcg PO DAILY losartan 25 mg tablet 25 mg PO DAILY estradiol 2 mg tablet 2 mg PO DAILY Follow-up/Referrals: Carl,Amanda Jensen, INSOLE AND OUTSOLE SPLITTER [Primary Care Provider, Unknown]
[2025-07-14 10:06] LABS: Influenza A QL RT-PCR Negative (Negative); Influenza B QL RT-PCR Negative (Negative); RSV RNA, RT-PCR Negative (Negative); SARS-CoV-2 RNA PCR Negative (Negative)
[2025-07-14 11:50] VITALS: BP 138/59; PULSE 69; RESP 15; O2SAT 98
== END 2025-07-14 11:52 | disposition home or self-care (01) ==
PROVIDERS: Emergency Provider Student in an Organized Health Care Education/Training Program; PCP Nurse Practitioner
DX: J40 Bronchitis, not specified as acute or chronic (principal); Z20.822 Contact with and (suspected) exposure to COVID-19
CPT/HCPCS: 36415; 71046; 80053; 85025; 87637; 99284